=== PATIENT | male | born 1995 | race Two or more races ===

== ENCOUNTER 2023-07-13 04:34 | Emergency (ER) | payer BC, OTHER ==
[2023-07-13 05:05] VITALS: BP 129/70; PULSE 91; RESP 20; BMI 21.1
[2023-07-13 05:07] VITALS: TEMP 97.9
== END 2023-07-13 06:27 | disposition home or self-care (01) ==
LOC: JER 04:34
DX: R11.2 Nausea with vomiting, unspecified (principal); K21.9 Gastro-esophageal reflux disease without esophagitis; R10.9 Unspecified abdominal pain
CPT/HCPCS: 99283-25

== ENCOUNTER 2023-08-08 07:04 | Emergency (ER) | payer OTHER ==
[2023-08-08 07:26] VITALS: BP 139/83; PULSE 84; RESP 20; TEMP 98.2; BMI 22.1
[2023-08-08] MEDS ORDERED: ACETAMINOPHEN 1000 MG/100 ML BAG IVPB ONE (09:09)
[2023-08-08] MEDS ORDERED: LACTATED RINGERS SOLUTION 1000 ML INFUS.BAG IV ONE (09:09)
[2023-08-08] MEDS ORDERED: ONDANSETRON 4 MG/2 ML VIAL IVPUSH PRN (09:10)
[2023-08-08] MEDS ORDERED: ACETAMINOPHEN INJECTION 100 ML IVPB ONE (09:17)
[2023-08-08 09:58] LABS: BASO % 0.4 % (0-2.0); EOS % 3.9 % (0-4.5); HEMATOCRIT 42.2 % (35.4-49); HEMOGLOBIN 14.4 GM/dL (11.7-16.9); LYMPH % 50.7 % (8-40); MCH 28.2 pg (25.7-33.7); MCHC 34.1 g/dl (32.0-35.9); MEAN CELL VOLUME 82.9 fl (80-96); MEAN PLT VOLUME 7.6 fl (7.5-11.1); MONO % 6.5 % (3.8-10.2); NEUT % 38.5 % (42.8-82.8); PLATELET COUNT 268 10^3/uL (134-434); RBC 5.09 M/mm3 (4.00-5.60); RDW 13.1 % (11.9-15.9); WHITE BLOOD COUNT 4.3 K/mm3 (4.0-10.0)
[2023-08-08 10:10] LABS: POTASSIUM 4.3 mmol/L (3.5-5.1)
[2023-08-08 10:16] LABS: ALBUMIN 4.3 g/dl (3.4-5.0); BLOOD UREA NITROGEN 11.6 mg/dL (7-18); CALCIUM 9.9 mg/dL (8.5-10.1)
[2023-08-08 10:19] LABS: CREATININE 1.2 mg/dL (0.55-1.3)
[2023-08-08 10:20] LABS: BILIRUBIN,TOTAL 0.9 mg/dL (0.2-1); TOT PROT 7.7 g/dl (6.4-8.2)
[2023-08-08] MEDS ORDERED: FAMOTIDINE 20 MG/50 ML IVPB 20 MG/50 ML MG IVPB ONE ×2 (11:43→11:48)
== END 2023-08-08 13:49 | disposition home or self-care (01) ==
LOC: JER 07:04
PROC: 3E033GC Introduction of Other Therapeutic Substance into Peripheral Vein, Percutaneous Approach (ICD-10-PCS; principal; 2023-08-08)
PROC: 3E033GC Introduction of Other Therapeutic Substance into Peripheral Vein, Percutaneous Approach (ICD-10-PCS; 2023-08-08)
PROC: 3E033GC Introduction of Other Therapeutic Substance into Peripheral Vein, Percutaneous Approach (ICD-10-PCS; 2023-08-08)
DX: R11.2 Nausea with vomiting, unspecified (principal); R53.1 Weakness; R10.13 Epigastric pain; K29.70 Gastritis, unspecified, without bleeding
CPT/HCPCS: 36415; 80053; 83690; 85025; 99284-25

== ENCOUNTER 2023-08-09 10:25 | Emergency (ER) | payer OTHER ==
[2023-08-09 10:27] VITALS: BMI 21.2
[2023-08-09] MEDS ORDERED: SODIUM CHLORIDE 0.9% 1000 ML INFUS.BAG IV ONE ×2 (11:21→11:36)
[2023-08-09] MEDS ORDERED: HALOPERIDOL DECANOATE 100 MG/ML IM ONE (11:23)
[2023-08-09] MEDS ORDERED: HALOPERIDOL LACTATE 5 MG/ML IVPUSH ONE (11:37)
[2023-08-09] MEDS ORDERED: HALOPERIDOL LACTATE 5 MG/ML ONE (12:09)
[2023-08-09 12:47] LABS: BASO % 0.5 % (0-2.0); HEMATOCRIT 43.4 % (35.4-49); HEMOGLOBIN 14.8 GM/dL (11.7-16.9); LYMPH % 48.1 % (8-40); MCH 28.6 pg (25.7-33.7); MCHC 34.1 g/dl (32.0-35.9); MEAN PLT VOLUME 7.6 fl (7.5-11.1); MONO % 7.7 % (3.8-10.2); NEUT % 37.7 % (42.8-82.8); PLATELET COUNT 262 10^3/uL (134-434); RBC 5.17 M/mm3 (4.00-5.60); RDW 13.6 % (11.9-15.9); WHITE BLOOD COUNT 3.8 K/mm3 (4.0-10.0)
[2023-08-09 13:09] LABS: POTASSIUM 4.1 mmol/L (3.5-5.1)
[2023-08-09 13:11] LABS: CALCIUM 9.9 mg/dL (8.5-10.1)
[2023-08-09 13:12] LABS: ALBUMIN 4.8 g/dl (3.4-5.0); BLOOD UREA NITROGEN 14.1 mg/dL (7-18)
[2023-08-09 13:15] LABS: CREATININE 1.4 mg/dL (0.55-1.3)
[2023-08-09 13:16] LABS: BILIRUBIN,TOTAL 1.3 mg/dL (0.2-1)
[2023-08-09 13:17] LABS: TOT PROT 7.9 g/dl (6.4-8.2)
[2023-08-09 17:21] VITALS: BP 103/55; PULSE 71; RESP 16; TEMP 98.3
== END 2023-08-09 17:21 | disposition home or self-care (01) ==
LOC: JER 10:25
PROC: 3E033GC Introduction of Other Therapeutic Substance into Peripheral Vein, Percutaneous Approach (ICD-10-PCS; principal; 2023-08-09)
PROC: 3E033GC Introduction of Other Therapeutic Substance into Peripheral Vein, Percutaneous Approach (ICD-10-PCS; 2023-08-09)
DX: K59.09 Other constipation (principal); K31.84 Gastroparesis; R11.10 Vomiting, unspecified; R10.13 Epigastric pain; F12.90 Cannabis use, unspecified, uncomplicated
CPT/HCPCS: 36415; 74019-TC-FY; 80053; 85025; 93005; 93010; 99285-25

== ENCOUNTER 2023-08-14 06:27 | Inpatient (IN) | payer OTHER ==
[2023-08-14] MEDS ORDERED: MAG HYDROX/AL HYDROX/SIMETH 30 ML UNIT-DOSE CUP ONE (08:09)
[2023-08-14] MEDS ORDERED: FAMOTIDINE 20 MG/50 ML IVPB 20 MG/50 ML MG IVPB ONE (08:09)
[2023-08-14] MEDS: FAMOTIDINE 20 MG/50 ML IVPB 20 MG/50 ML MG IVPB ONE (08:36)
[2023-08-14] MEDS: SODIUM CHLORIDE 0.9% 500 ML INFUS.BAG IV ONE (08:36)
[2023-08-14] MEDS: MAG HYDROX/AL HYDROX/SIMETH 30 ML UNIT-DOSE CUP PO ONE (08:36)
[2023-08-14 08:41] LABS: BASO % 0.6 % (0-2.0); EOS % 5.8 % (0-4.5); HEMOGLOBIN 14.9 GM/dL (11.7-16.9); LYMPH % 41.2 % (8-40); MCH 28.1 pg (25.7-33.7); MCHC 33.9 g/dl (32.0-35.9); MEAN PLT VOLUME 7.9 fl (7.5-11.1); MONO % 6.6 % (3.8-10.2); NEUT % 45.8 % (42.8-82.8); PLATELET COUNT 266 10^3/uL (134-434); RDW 13.3 % (11.9-15.9); WHITE BLOOD COUNT 4.5 K/mm3 (4.0-10.0)
[2023-08-14] MEDS ORDERED: ONDANSETRON 4 MG/2 ML VIAL ONE (08:55)
[2023-08-14] MEDS: ONDANSETRON 4 MG/2 ML VIAL IVPUSH ONE (08:59)
[2023-08-14 09:00] LABS: POTASSIUM 3.5 mmol/L (3.5-5.1)
[2023-08-14 09:02] LABS: BLOOD UREA NITROGEN 15.6 mg/dL (7-18)
[2023-08-14 09:04] LABS: MAGNESIUM 2.6 mg/dL (1.8-2.4)
[2023-08-14 09:05] LABS: CREATININE 1.5 mg/dL (0.55-1.3); PHOSPHOROUS 1.9 mg/dL (2.5-4.9)
[2023-08-14 09:06] LABS: TOT PROT 8.2 g/dl (6.4-8.2)
[2023-08-14 09:07] LABS: BILIRUBIN,TOTAL 0.7 mg/dL (0.2-1)
[2023-08-14] MEDS ORDERED: METOCLOPRAMIDE HCL INJECTION 10 MG/2 ML VIAL ONE (09:43)
[2023-08-14] MEDS: METOCLOPRAMIDE HCL INJECTION 10 MG/2 ML VIAL IVPB ONE (10:01)
[2023-08-14] MEDS ORDERED: ONDANSETRON 4 MG/2 ML VIAL IVPUSH PRN (12:38)
[2023-08-14] MEDS: LACTATED RINGERS SOLUTION 1,000 ML/1,000 ML INFUS.BAG IV SCH (13:35)
[2023-08-14] MEDS: FOSAPREPITANT DIMEGLUMINE 150 MG in SODIUM CHLORIDE 145 ML IVPB ONE (13:36)
[2023-08-14] MEDS ORDERED: METOCLOPRAMIDE HCL INJECTION 10 MG/2 ML VIAL IVPUSH PRN (13:59)
[2023-08-14] MEDS: NAPH,MB-DB/K PH,MBDB POWDER PACKET PO ONE (18:03)
[2023-08-14] MEDS: MAG HYDROX/AL HYDROX/SIMETH 30 ML UNIT-DOSE CUP PO PRN (18:03)
[2023-08-14 20:59] LABS: PHENCYCLIDINE,URINE NEGATIVE (NEGATIVE)
[2023-08-14 21:00] LABS: METHADONE, UR NEGATIVE (NEGATIVE); OPIATES, URI NEGATIVE (NEGATIVE); URINE BENZODIAZEPINES NEGATIVE (NEGATIVE)
[2023-08-14 21:01] LABS: COCAINE, UR NEGATIVE (NEGATIVE); URINE AMPHETAMINES NEGATIVE (NEGATIVE); URINE BARBITURATES NEGATIVE (NEGATIVE)
[2023-08-14] MEDS: PANTOPRAZOLE 40 MG TABLET PO SCH (21:58)
[2023-08-15] MEDS: POLYETHYLENE GLYCOL (HEALTHYLAX) 3350 17 GM PACKET PO SCH (09:00)
[2023-08-15 09:10] LABS: BASO % 0.3 % (0-2.0); EOS % 6.6 % (0-4.5); HEMATOCRIT 38.1 % (35.4-49); HEMOGLOBIN 13.1 GM/dL (11.7-16.9); LYMPH % 54.7 % (8-40); MCH 28.6 pg (25.7-33.7); MCHC 34.2 g/dl (32.0-35.9); MEAN CELL VOLUME 83.5 fl (80-96); MONO % 6.3 % (3.8-10.2); NEUT % 32.1 % (42.8-82.8); PLATELET COUNT 194 10^3/uL (134-434); RBC 4.57 M/mm3 (4.00-5.60); RDW 13.6 % (11.9-15.9); WHITE BLOOD COUNT 4.7 K/mm3 (4.0-10.0)
[2023-08-15 09:40] LABS: POTASSIUM 4.1 mmol/L (3.5-5.1)
[2023-08-15 09:51] LABS: BILIRUBIN,TOTAL 1.2 mg/dL (0.2-1); BLOOD UREA NITROGEN 7.4 mg/dL (7-18); CALCIUM 9.1 mg/dL (8.5-10.1); MAGNESIUM 2.1 mg/dL (1.8-2.4); TOT PROT 6.6 g/dl (6.4-8.2)
[2023-08-15 09:53] LABS: CREATININE 1.1 mg/dL (0.55-1.3); PHOSPHOROUS 2.7 mg/dL (2.5-4.9)
[2023-08-15] MEDS ORDERED: PANTOPRAZOLE 40 MG TABLET PO SCH (10:00)
[2023-08-15 10:16] LABS: ALBUMIN 3.7 g/dl (3.4-5.0)
[2023-08-15] MEDS ORDERED: ACETAMINOPHEN 1000 MG/100 ML BAG IVPB PRN (12:17)
[2023-08-15] MEDS: METOCLOPRAMIDE HCL 10 MG TABLET (FP) PO SCH (17:33)
[2023-08-15 21:41] VITALS: BMI 20.9
[2023-08-16 10:04] LABS: BASO % 0.2 % (0-2.0); EOS % 7.2 % (0-4.5); HEMATOCRIT 40.5 % (35.4-49); HEMOGLOBIN 13.7 GM/dL (11.7-16.9); LYMPH % 43.5 % (8-40); MCH 28.5 pg (25.7-33.7); MCHC 33.8 g/dl (32.0-35.9); MEAN CELL VOLUME 84.3 fl (80-96); MEAN PLT VOLUME 8.1 fl (7.5-11.1); MONO % 7.1 % (3.8-10.2); PLATELET COUNT 211 10^3/uL (134-434); RDW 13.2 % (11.9-15.9)
[2023-08-16 10:09] LABS: POTASSIUM 3.5 mmol/L (3.5-5.1)
[2023-08-16 10:35] LABS: ALBUMIN 4.2 g/dl (3.4-5.0); BLOOD UREA NITROGEN 7.7 mg/dL (7-18); CALCIUM 9.6 mg/dL (8.5-10.1)
[2023-08-16 10:39] LABS: CREATININE 1.2 mg/dL (0.55-1.3)
[2023-08-16 10:40] LABS: BILIRUBIN,TOTAL 1.4 mg/dL (0.2-1); TOT PROT 7.1 g/dl (6.4-8.2)
[2023-08-16] MEDS: PEG 3350/NA SULF BICARB CL/KCL 4000 ML SOLN.RECON PO ONE (15:20)
[2023-08-16] MEDS: BISACODYL 5 MG TABLET.DR (FP) PO ONE (15:20)
[2023-08-17] MEDS ORDERED: ACETAMINOPHEN 1000 MG/100 ML BAG IVPB PRN (13:44)
[2023-08-17] MEDS: LACTATED RINGERS SOLUTION 1,000 ML/1,000 ML INFUS.BAG IV SCH (19:31)
[2023-08-18 01:32] VITALS: RESP 17
[2023-08-18 06:50] VITALS: BP 92/51; PULSE 57; TEMP 97.7
[2023-08-18 10:00] LABS: BASO % 0.4 % (0-2.0); EOS % 9.8 % (0-4.5); HEMATOCRIT 39.5 % (35.4-49); HEMOGLOBIN 13.5 GM/dL (11.7-16.9); LYMPH % 53.3 % (8-40); MCH 28.2 pg (25.7-33.7); MCHC 34.3 g/dl (32.0-35.9); MEAN CELL VOLUME 82.3 fl (80-96); MEAN PLT VOLUME 7.7 fl (7.5-11.1); MONO % 7.3 % (3.8-10.2); NEUT % 29.2 % (42.8-82.8); PLATELET COUNT 231 10^3/uL (134-434); RBC 4.79 M/mm3 (4.00-5.60); RDW 13.2 % (11.9-15.9); WHITE BLOOD COUNT 3.9 K/mm3 (4.0-10.0)
[2023-08-18 10:23] LABS: POTASSIUM 4.2 mmol/L (3.5-5.1)
[2023-08-18 10:29] LABS: BLOOD UREA NITROGEN 14.8 mg/dL (7-18)
[2023-08-18 10:31] LABS: CALCIUM 9.8 mg/dL (8.5-10.1)
[2023-08-18 10:33] LABS: CREATININE 1.3 mg/dL (0.55-1.3)
[2023-08-18 10:34] LABS: BILIRUBIN,TOTAL 0.8 mg/dL (0.2-1)
== END 2023-08-18 11:55 | disposition home or self-care (01) | DRG 249 ==
LOC: JER 06:27 → INTOOBSV 10:10 → JERBED 10:10 → UNDOADMOB 10:10 → J5S 10:56 → JERBED 10:56 → J5S 12:33 → OBSVTOIN 08-17 10:53
PROVIDERS: ADMIT Internal Medicine; ATTEND Internal Medicine
DX: R11.2 Nausea with vomiting, unspecified (principal); E86.0 Dehydration; F12.90 Cannabis use, unspecified, uncomplicated; K21.9 Gastro-esophageal reflux disease without esophagitis; F41.8 Other specified anxiety disorders; R10.11 Right upper quadrant pain
CPT/HCPCS: 36415; 74176-TC; 76705-TC; 78226-TC; 80053; 80307; 83036; 83690; 83735; 84100; 85025; 86140; 93005; 93010; 99285-25; A9537; G0378; J1453

== ENCOUNTER 2023-08-27 16:32 | Emergency (ER) | payer OTHER ==
[2023-08-27 16:41] VITALS: BP 121/86; PULSE 85; RESP 18; TEMP 98.6; BMI 21.2
[2023-08-27] MEDS ORDERED: ACETAMINOPHEN INJECTION 100 ML IVPB ONE (17:36)
[2023-08-27] MEDS: MAG HYDROX/AL HYDROX/SIMETH 30 ML UNIT-DOSE CUP PO ONE (17:48)
[2023-08-27] MEDS: ACETAMINOPHEN 1000 MG/100 ML BAG IVPB ONE (17:48)
[2023-08-27 18:06] LABS: BASO % 0.2 % (0-2.0); EOS % 7.5 % (0-4.5); HEMATOCRIT 42.3 % (35.4-49); HEMOGLOBIN 14.5 GM/dL (11.7-16.9); LYMPH % 21.6 % (8-40); MCH 28.6 pg (25.7-33.7); MCHC 34.4 g/dl (32.0-35.9); MEAN CELL VOLUME 83.1 fl (80-96); MEAN PLT VOLUME 7.6 fl (7.5-11.1); MONO % 4.8 % (3.8-10.2); NEUT % 65.9 % (42.8-82.8); PLATELET COUNT 276 10^3/uL (134-434); RBC 5.08 M/mm3 (4.00-5.60); RDW 13.3 % (11.9-15.9); WHITE BLOOD COUNT 5.2 K/mm3 (4.0-10.0)
[2023-08-27] MEDS ORDERED: FAMOTIDINE 20 MG/50 ML IVPB 20 MG/50 ML MG IVPB ONE (18:11)
[2023-08-27 18:20] LABS: POTASSIUM 4.2 mmol/L (3.5-5.1)
[2023-08-27 18:22] LABS: CALCIUM 9.7 mg/dL (8.5-10.1)
[2023-08-27 18:23] LABS: ALBUMIN 4.5 g/dl (3.4-5.0); BLOOD UREA NITROGEN 13.3 mg/dL (7-18)
[2023-08-27 18:25] LABS: CREATININE 1.2 mg/dL (0.55-1.3)
[2023-08-27 18:27] LABS: BILIRUBIN,TOTAL 0.7 mg/dL (0.2-1); TOT PROT 7.5 g/dl (6.4-8.2)
[2023-08-27] MEDS: FAMOTIDINE 20 MG/50 ML IVPB 20 MG/50 ML MG IVPB ONE (18:31)
[2023-08-27] MEDS: LACTATED RINGERS SOLUTION 1000 ML INFUS.BAG IV ONE (18:45)
[2023-08-27] MEDS ORDERED: SUCRALFATE 1 GM TABLET (FP) ONE (19:34)
[2023-08-27] MEDS: SUCRALFATE 1 GM TABLET (FP) PO ONE (19:42)
== END 2023-08-27 20:32 | disposition home or self-care (01) ==
LOC: JER 16:32
PROC: 3E033GC Introduction of Other Therapeutic Substance into Peripheral Vein, Percutaneous Approach (ICD-10-PCS; principal; 2023-08-27)
PROC: 3E033GC Introduction of Other Therapeutic Substance into Peripheral Vein, Percutaneous Approach (ICD-10-PCS; 2023-08-27)
DX: R11.2 Nausea with vomiting, unspecified (principal); K22.89 Other specified disease of esophagus
CPT/HCPCS: 36415; 80053; 83690; 85025; 99284-25; J0131

== ENCOUNTER 2024-09-30 00:01 | Emergency (ER) | payer OTHER ==
[2024-09-30 00:25] VITALS: PULSE 68; RESP 16; TEMP 99.4; BMI 23.3
[2024-09-30] MEDS ORDERED: GLUCAGON 1 MG KIT ONE ×2 (00:43→00:44)
[2024-09-30] MEDS ORDERED: ONDANSETRON 4 MG/2 ML VIAL ONE (00:43)
[2024-09-30] MEDS ORDERED: ACETAMINOPHEN INJECTION 100 ML ONE (00:43)
[2024-09-30] MEDS: ACETAMINOPHEN 1000 MG/100 ML BAG IVPB ONE (00:57)
[2024-09-30] MEDS: ONDANSETRON 4 MG/2 ML VIAL IVPUSH ONE (00:57)
[2024-09-30 01:04] LABS: ABSOLUTE IMMATURE GRANULOCYTES 0.01 x10^3/uL (0.0-0.031); BASOPHILS # 0.02 x10^3/uL (0.01-0.08); EOSINOPHIL % 4.6 % (0.8-7.0); EOSINOPHILS # 0.27 x10^3/uL (0.04-0.54); HEMATOCRIT 43.1 % (40.1-51.0); HEMOGLOBIN 14.5 g/dL (13.7-17.5); MCHC 33.6 g/dl (32.3-36.5); MEAN CELL VOLUME 82.9 fl (79.0-92.2); MEAN PLT VOLUME 9.2 fl (9.4-12.4); MONOCYTE % 5.1 % (5.3-12.2); PLATELET COUNT # 272 x10^3/uL (163-337); RDW 12.5 % (11.9-15.3)
[2024-09-30 01:21] LABS: INR 0.98 (0.83-1.09); PROTHROMBIN TIME (PATIENT) 10.8 SEC (9.7-13.0)
[2024-09-30 01:23] LABS: ACTIVATED PTT 26.4 SECONDS (25.2-36.5)
[2024-09-30] MEDS: GLUCAGON 1 MG KIT IVPUSH ONE (01:26)
[2024-09-30 01:36] LABS: POTASSIUM 3.8 mmol/L (3.5-5.1)
[2024-09-30 01:38] LABS: ALBUMIN 4.6 g/dl (3.4-5.0); CALCIUM 9.4 mg/dL (8.5-10.1)
[2024-09-30 01:39] LABS: BLOOD UREA NITROGEN 13.9 mg/dL (7-18)
[2024-09-30 01:42] LABS: CREATININE 1.3 mg/dL (0.55-1.3)
[2024-09-30 01:43] LABS: BILIRUBIN,TOTAL 0.6 mg/dL (0.2-1); TOT PROT 7.6 g/dl (6.4-8.2)
[2024-09-30 02:27] VITALS: BP 121/70
== END 2024-09-30 02:25 | disposition home or self-care (01) ==
LOC: JER 00:01
PROC: 3E033NZ Introduction of Analgesics, Hypnotics, Sedatives into Peripheral Vein, Percutaneous Approach (ICD-10-PCS; principal; 2024-09-30)
PROC: 3E033GC Introduction of Other Therapeutic Substance into Peripheral Vein, Percutaneous Approach (ICD-10-PCS; 2024-09-30)
PROC: 3E033GC Introduction of Other Therapeutic Substance into Peripheral Vein, Percutaneous Approach (ICD-10-PCS; 2024-09-30)
DX: M25.552 Pain in left hip (principal); R09.A2 Foreign body sensation, throat; R10.13 Epigastric pain; M25.522 Pain in left elbow; M25.562 Pain in left knee; R11.14 Bilious vomiting; W10.8XXA Fall (on) (from) other stairs and steps, initial encounter; Y93.01 Activity, walking, marching and hiking
CPT/HCPCS: 36415; 73502-TC-LT-FY; 80053; 83690; 85025; 85610; 85730; 86850; 86900; 86901; 99284-25; J0131